=== PATIENT | female | born 1955 | race Caucasian/White ===

== ENCOUNTER 2024-04-17 17:20 | Inpatient (IN) | payer MEDICARE, MEDICAID ==
[2024-04-17] MEDS ORDERED: hydrALAZINE 20 MG/ML VIAL SLOW IVP PRN (17:58)
[2024-04-17] MEDS ORDERED: Ondansetron PF 4 MG/2 ML Vial IVP PRN (17:58)
[2024-04-17] MEDS ORDERED: Polyethylene Glycol 3350 17 GM Packet PO PRN (17:58)
[2024-04-17] MEDS ORDERED: Docusate 100 MG CAP PO PRN (17:58)
[2024-04-17 18:02] VITALS: BMI 21.0
[2024-04-17] MEDS ORDERED: Ventolin HFA Inhaler 60 PUFF INHALER INH PRN (19:50)
[2024-04-17] MEDS: traZODone HCl 50 MG TAB PO SCH (20:24)
[2024-04-17] MEDS: Atorvastatin Calcium 40 MG TAB PO SCH (20:25)
[2024-04-17] MEDS: Gabapentin 300 MG CAP PO SCH (20:25)
[2024-04-17] MEDS: Acetaminophen 325 MG TAB PO PRN (20:26)
[2024-04-17] MEDS: tiZANidine HCl 4 MG TAB PO SCH (20:26)
[2024-04-17] MEDS: Potassium Chloride 20 MEQ TAB PO SCH (20:27)
[2024-04-17] MEDS: Fioricet 325/50/40 mg Tablet PO PRN (22:17)
[2024-04-18 04:39] LABS: #Basophils 0.03 10x3/uL (0.0-0.2); #Eosinophils 0.49 10x3/uL (0.0-0.5); #Neutrophils 3.42 10x3/uL (1.5-8.4); %Basophils 0.5 % (0.0-2.0); %Eosinophils 8.5 % (0.0-6.0); %Lymphocytes 22.6 % (18.0-47.0); %Monocytes 8.7 % (0.0-10.0); %Neutrophils 59.5 % (40.0-75.0); Hematocrit 29.4 % (34.9-44.5); Hemoglobin 9.6 g/dL (12.0-15.5); Mean Corpuscular HGB CONC 32.7 g/dL (32.0-36.0); Mean Corpuscular Hemoglobin 32.8 pg (27.0-33.0); Mean Corpuscular Volume 100.3 fL (81.6-98.3); Mean Platelet Volume 9.7 fL (7.4-10.4); Platelet Count 385 10x3/uL (150-450); Red Blood Cell (RBC) Count 2.93 10x6/uL (3.90-5.03); White Blood Cell (WBC) Count 5.8 10x3/uL (3.5-10.5)
[2024-04-18 04:53] LABS: Anion Gap 11 mmol/L (10-20); BUN (Urea Nitrogen) 17 mg/dL (9.8-20.1); Calc. Creatinine Clearance 52 mL/min (70-130); Calcium 8.7 mg/dL (7.8-10.44); Carbon Dioxide 27 mmol/L (23-31); Cardiac Risk 4.2 (Less than 4.5); Chloride 106 mmol/L (98-107); Cholesterol 183 mg/dl (< 200 Desired); Estimated GFR 72; Glucose 90 mg/dL (80-115); HDL Cholesterol 44 mg/dL (>60 Neg Risk); LDL Cholesterol, Calculated 117 mg/dL; Magnesium 2.2 mg/dL (1.6-2.6); Potassium 4.4 mmol/L (3.5-5.1); Sodium 140 mmol/L (136-145); Triglycerides 112 mg/dL (Less than 150)
[2024-04-18] MEDS: Ipratropium/Albuterol 3 ML NEB NEB SCH (07:39)
[2024-04-18] MEDS: Aspirin 81 mg Enteric Coated Tablet PO SCH (09:00)
[2024-04-18] MEDS: Enoxaparin 40 MG (0.4 mL) SYRINGE SC SCH (09:00)
[2024-04-18 12:57] LABS: Hemoglobin A1c 5.4 % (4.0-6.0)
[2024-04-19] MEDS: FLU (Fluad Triv) TS24-25 (65UP)/MF59C/PF 45 MCG/0.5 ML Syringe IM ONE (08:36)
[2024-04-19 23:37] VITALS: TEMP 97.1
[2024-04-20 09:36] VITALS: BP 140/71
== END 2024-04-20 11:00 | disposition home or self-care (01) | DRG 65 ==
LOC: CSHTELE 17:20 → OBSVTOIN 04-18 13:19
PROVIDERS: ADMIT Internal Medicine; ATTEND Internal Medicine
DX: I63.511 Cerebral infarction due to unspecified occlusion or stenosis of right middle cerebral artery (principal); C34.90 Malignant neoplasm of unspecified part of unspecified bronchus or lung; Q60.0 Renal agenesis, unilateral; G81.94 Hemiplegia, unspecified affecting left nondominant side; J44.9 Chronic obstructive pulmonary disease, unspecified; F17.210 Nicotine dependence, cigarettes, uncomplicated; G43.909 Migraine, unspecified, not intractable, without status migrainosus; I10 Essential (primary) hypertension; D64.9 Anemia, unspecified; Z88.0 Allergy status to penicillin; Z88.5 Allergy status to narcotic agent; Z88.6 Allergy status to analgesic agent; Z98.890 Other specified postprocedural states; Z90.710 Acquired absence of both cervix and uterus; Z82.49 Family history of ischemic heart disease and other diseases of the circulatory system
CPT/HCPCS: 36415; 70551; 80048; 80061; 83036; 83735; 85025; 93005; 93010; 93306; 94640; 96372; G0378; J1650; J7620

== ENCOUNTER 2024-05-07 17:17 | Observation (INO) | payer MEDICARE, MEDICAID ==
[~2024-05-07 17:17] MED LIST: Iopamidol 300 61% 100 ML VIAL FS ONE
[2024-05-07 18:06] LABS: #Basophils 0.07 10x3/uL (0.0-0.2); #Eosinophils 0.47 10x3/uL (0.0-0.5); #Monocytes 0.58 10x3/uL (0.0-1.1); #Neutrophils 3.51 10x3/uL (1.5-8.4); %Basophils 1.1 % (0.0-2.0); %Eosinophils 7.6 % (0.0-6.0); %Lymphocytes 24.6 % (18.0-47.0); %Monocytes 9.4 % (0.0-10.0); %Neutrophils 57.1 % (40.0-75.0); Hematocrit 34.8 % (34.9-44.5); Hemoglobin 11.3 g/dL (12.0-15.5); Mean Corpuscular HGB CONC 32.5 g/dL (32.0-36.0); Mean Corpuscular Hemoglobin 32.7 pg (27.0-33.0); Mean Corpuscular Volume 100.6 fL (81.6-98.3); Mean Platelet Volume 9.7 fL (7.4-10.4); Platelet Count 313 10x3/uL (150-450); RBC Distribution Width 13.9 % (11.5-14.5); Red Blood Cell (RBC) Count 3.46 10x6/uL (3.90-5.03); White Blood Cell (WBC) Count 6.2 10x3/uL (3.5-10.5)
[2024-05-07 18:17] LABS: ALT (SGPT) 8 U/L (8-55); AST (SGOT) 20 U/L (5-34); Albumin 3.7 g/dL (3.4-4.8); Alkaline Phosphatase 56 U/L (40-110); Anion Gap 13 mmol/L (10-20); BUN (Urea Nitrogen) 30 mg/dL (9.8-20.1); Bilirubin, Total 0.2 mg/dL (0.2-1.2); Calc. Creatinine Clearance 0 mL/min (70-130); Calcium 9.5 mg/dL (7.8-10.44); Carbon Dioxide 22 mmol/L (23-31); Chloride 106 mmol/L (98-107); Estimated GFR 42; Globulin 3.1 g/dL (2.4-3.5); Glucose 87 mg/dL (80-115); Potassium 4.3 mmol/L (3.5-5.1); Protein, Total 6.8 g/dL (5.8-8.1); Sodium 137 mmol/L (136-145)
[2024-05-07 18:20] LABS: Acetaminophen 30 mcg/mL (Less than 10); Alcohol Less than 10.0 mg/dL (Less than 10); CK (CPK) 151 U/L (29-168); Lipase 105 U/L (8-78); Salicylate Less than 8.0 mg/dL (Less than 8.0)
[2024-05-07 18:21] LABS: Troponin I Less than 0.010 ng/mL (< 0.028)
[2024-05-07 20:10] LABS: Bilirubin Neg (Negative); Blood, Urine 150 (Negative); Glucose, Urine (Dipstick) Normal (Negative); Ketone, Urine Negative (Negative); Leukocyte 25 (Negative); Nitrite Positive (Negative); Protein, Urine (Dipstick) 30 mg/dl (Neg-Trace); Urobilinogen Normal mg/dL (Less than 2)
[2024-05-07 20:17] LABS: Clarity Hazy (Clear)
[2024-05-07 20:20] LABS: Amphetamine Not Detected (NotDetected); Bacteria/HPF 3+ HPF (None Seen); Barbiturates Screen Detected (NotDetected); Benzodiazepine Screen Not Detected (NotDetected); CAUTI Indications for Culture Alt mental st,lethar; Cocaine Metabolite Screen Not Detected (NotDetected); Methadone Not Detected (NotDetected); Methamphetamine Not Detected (NotDetected); Opiate Screen Detected (NotDetected); Oxycodone Screen Not Detected (NotDetected); Phencyclidine (PCP) Not Detected (NotDetected); Squamous Epithelial 0-3 HPF (0-3); THC/Cannabinoid Screen Not Detected (NotDetected); Tricyclic Screen Not Detected (NotDetected)
[2024-05-07 20:22] LABS: Urine Culture Reflex Yes Yes
[2024-05-07] MEDS ORDERED: cefTRIAXone (ROCEPHIN) 1 GM VIAL ONE (20:48)
[2024-05-07] MEDS ORDERED: Sterile Water 10 ML ONE (20:48)
[2024-05-07] MEDS ORDERED: Ondansetron PF 4 MG/2 ML Vial IVP PRN (22:09)
[2024-05-07 23:57] VITALS: BMI 21.9
[2024-05-08] MEDS: Acetaminophen 500 MG TAB PO SCH (02:09)
[2024-05-08] MEDS: Sodium Chloride 0.9% 1,000 ML IV SCH (02:10)
[2024-05-08] MEDS: Fioricet 325/50/40 mg Tablet PO SCH (03:51)
[2024-05-08 04:19] LABS: #Basophils 0.06 10x3/uL (0.0-0.2); #Eosinophils 0.43 10x3/uL (0.0-0.5); #Monocytes 0.54 10x3/uL (0.0-1.1); #Neutrophils 4.37 10x3/uL (1.5-8.4); %Basophils 0.9 % (0.0-2.0); %Eosinophils 6.3 % (0.0-6.0); %Lymphocytes 20.3 % (18.0-47.0); %Monocytes 7.9 % (0.0-10.0); %Neutrophils 64.3 % (40.0-75.0); Hematocrit 32.1 % (34.9-44.5); Hemoglobin 10.8 g/dL (12.0-15.5); Mean Corpuscular HGB CONC 33.6 g/dL (32.0-36.0); Mean Corpuscular Volume 98.2 fL (81.6-98.3); Mean Platelet Volume 9.7 fL (7.4-10.4); Platelet Count 317 10x3/uL (150-450); RBC Distribution Width 13.9 % (11.5-14.5); Red Blood Cell (RBC) Count 3.27 10x6/uL (3.90-5.03); White Blood Cell (WBC) Count 6.8 10x3/uL (3.5-10.5)
[2024-05-08 04:24] LABS: Anion Gap 15 mmol/L (10-20); BUN (Urea Nitrogen) 20 mg/dL (9.8-20.1); Calc. Creatinine Clearance 55 mL/min (70-130); Calcium 8.7 mg/dL (7.8-10.44); Carbon Dioxide 19 mmol/L (23-31); Chloride 110 mmol/L (98-107); Estimated GFR 73; Glucose 89 mg/dL (80-115); Potassium 3.9 mmol/L (3.5-5.1); Sodium 140 mmol/L (136-145)
[2024-05-08] MEDS: cefTRIAXone\\ROCEPHIN 1 GM in Sodium Chloride 0.9% 100 ML IVPB SCH (06:01)
[2024-05-08 08:37] VITALS: TEMP 97.8
[2024-05-08] MEDS: Enoxaparin 40 MG (0.4 mL) SYRINGE SC SCH (08:37)
[2024-05-08 10:24] VITALS: BP 121/71
[2024-05-08] MEDS: Pantoprazole 40 MG VIAL IVP SCH (10:45)
[2024-05-08] MEDS ORDERED: Gabapentin 300 MG CAP PO SCH (15:00)
[2024-05-08] MEDS ORDERED: Atorvastatin Calcium 40 MG TAB PO SCH (21:00)
[2024-05-08] MEDS ORDERED: cefTRIAXone\\ROCEPHIN 1 GM in Sodium Chloride 0.9% 100 ML IVPB SCH (21:00)
[2024-05-09] MEDS ORDERED: Pantoprazole 40 MG VIAL IVP SCH (09:00)
[2024-05-09] MEDS ORDERED: Aspirin 81 mg Enteric Coated Tablet PO SCH (09:00)
== END 2024-05-08 11:30 | disposition left against medical advice (07) ==
LOC: CSHERS 17:17 → CSHTELE 20:44
PROVIDERS: ADMIT Hospitalist; ATTEND Nurse Practitioner Acute Care
DX: R53.1 Weakness (principal); E11.9 Type 2 diabetes mellitus without complications; J44.9 Chronic obstructive pulmonary disease, unspecified; J43.9 Emphysema, unspecified; G43.909 Migraine, unspecified, not intractable, without status migrainosus; I10 Essential (primary) hypertension; E87.5 Hyperkalemia; N18.9 Chronic kidney disease, unspecified; N39.0 Urinary tract infection, site not specified; W19.XXXA Unspecified fall, initial encounter; Z88.5 Allergy status to narcotic agent; Z88.0 Allergy status to penicillin; Z79.899 Other long term (current) drug therapy; Z98.890 Other specified postprocedural states
CPT/HCPCS: 51701; 70450; 71045; 74018; 74177; 80048; 80306; 80307; 81001; 82140; 82550; 83690; 84484; 85025; 87077; 87086; 87186; 93005; 96372; 96374; 97530; 99285; G0378 ×3; J1650; J7030; Q9967; 36415; 80053; 84443; J0696